=== PATIENT | female | born 1995 | race Caucasian/White ===

== ENCOUNTER 2019-03-19 13:13 | Emergency (ER) | payer MEDICAID ==
[~2019-03-19] VITALS: Ht 160 cm; Wt 89.4 kg
[2019-03-19 13:16] VITALS: BP 143/90; Ht 160 cm; Wt 89.4 kg
--- NOTE | 2019-03-19 13:59 | ERD ---
ER Documentation Chief Complaint Chief Complaint cough & congestion x3 days, no back or abdomin pain 21wks HPI 24-year-old female 21 weeks gestation presenting with a chief complaint of cough congestion x3 days. Patient states she feels head pressure and ears popping she has taken Tylenol with little to no relief she denies any history of asthma or sick contacts. Patient denies any abdominal pain back pain or vaginal bleeding. She was unable to get into her primary care provider so she came to the ER. Patient takes no medications and has no allergies to medications. Patient denies any past medical surgeries. ROS All systems reviewed and are negative except as per history of present illness. Medications Home Meds Active Scripts Albuterol Sulfate* (Proair HFA*) 8.5 Gm Hfa.aer.ad, 2 PUFF INH Q4, #1 INHALER Prov:NIKHIL LEDEZMA PA-C 03/19/19 Allergies Allergies: Coded Allergies: No Known Allergy (Unverified , 03/19/19) PMhx/Soc Medical and Surgical Hx: pt denies Medical Hx, pt denies Surgical Hx FmHx Family History: No diabetes, No coronary disease, No other Physical Exam Vitals Vital Signs Date Temp Pulse Resp B/P (MAP) Pulse Ox O2 O2 Flow FiO2 Time Delivery Rate 03/19/19 83 18 96 21 14:55 03/19/19 83 19 98 Room Air 14:31 03/19/19 82 20 96 21 14:11 03/19/19 98.1 88 18 143/90 95 13:16 (107) Physical Exam Const: No acute distress Eyes: Normal Conjunctiva ENT: Normal External Ears, Nose and Mouth. Neck: Full range of motion. No meningismus. Resp: Wheezing heard on auscultation in upper and lower lung self. Cardio: Regular rate and rhythm, no murmurs Skin: No petechiae or rashes Back: No midline or flank tenderness Results 24 hrs Current Medications Medications Dose Sig/Tawanna Start Time Status Last (Trade) Ordered Route PRN Stop Time Admin Dose Reason Admin 1.25 mg ONCE ONCE 03/19/19 DC 03/19/19 Levalbuterol HHN 14:00 14:11 (Xopenex 03/19/19 14:01 Neb) 10 mg ONCE ONCE 03/19/19 DC 03/19/19 Dexamethasone IM 14:00 14:05 (Decadron) 03/19/19 14:01 1.25 mg ONCE ONCE 03/19/19 DC 03/19/19 Levalbuterol HHN 15:00 14:54 (Xopenex 03/19/19 15:01 Neb) Procedures/[facility] ER course: 24-year-old female presenting to the ER for cough congestion x3 days. Patient is currently 21 weeks and denies abdominal pain back pain or vaginal discharge. Patient states she has had head pressure body chills ears popping over the last few days and has taken Tylenol with little relief. Patient's O2 saturations were 95% and she was treated with Xopenex nebulizer and dexamethasone. Patient's O2 saturations jumped up to 98%. Patient still had wheezing and stated she only felt a little better. Patient was given a second dose of Xopenex nebulized. Patient's O2 saturation jumped up 99% on room air. Patient was being discharged with albuterol inhaler and was advised that she needs to follow-up with her OB tomorrow regarding this ER visit. Patient was advised side effects of albuterol and that it can increase her heart rate. Patient was advised to only use it as needed. Patient patient had no further questions upon discharge. [facility] Patient presented with cough congestion x3 days. Physical exam was remarkable for wheezing in all lung self. Patient's O2 saturation were 95% with no elevated temperature. Patient symptoms improved with breathing treatment. patient denied body aches chills fever nausea vomiting or diarrhea. Patient's physical exam leads to low suspicion of epiglottitis, strep pharyngitis, sinusitis, meningitis, otitis externa, otitis media, strep pharyngitis, epiglottitis or peritonsillar abscess. Departure Diagnosis: Primary Impression: Upper respiratory infection URI type: unspecified viral URI Qualified Codes: J06.9 - Acute upper respiratory infection, unspecified Condition: Stable Referrals: [facility] APPOINTMENT REFERRAL LIST NIKHIL LEDEZMA PA-C March 19, 2019 13:59
[2019-03-19] MEDS ORDERED: LEVALBUTEROL (NEB) 1.25 MG/0.5 ML AMP HHN ONE ×2 (14:00→15:00)
[2019-03-19] MEDS ORDERED: DEXAMETHASONE 10 MG/ML 1 ML INJ IM ONE (14:00)
[2019-03-19 14:31] VITALS: PULSE 83; RESP 19
[2019-03-19] MEDS ORDERED: ALBU8.5H8 INH (15:09)
== END 2019-03-19 15:17 | disposition home or self-care (01) ==
LOC: FTE 13:13
DX: J06.9 Acute upper respiratory infection, unspecified (principal)
CPT/HCPCS: 94640; 94664; 96372; J1100; Z7502; Z7610